=== PATIENT | male | born 1960 | race Asian ===

== ENCOUNTER 2019-03-31 02:00 | Inpatient (IN) | payer OTHER ==
[~2019-03-31] VITALS: Ht 180.3 cm; Wt 79.4 kg
[2019-03-31 02:36] LABS: BASOPHIL % 0.7 % (0-2); PLATELET COUNT 208 x10^3mcL (130-400); RED CELL DISTRIBUTION WIDTH 14.5 % (11.5-14.5)
[2019-03-31 02:51] LABS: ALBUMIN 3.9 g/dL (3.4-5.0); ALKALINE PHOSPHATASE 54 U/L (46-116); ALT/SGPT 32 U/L (16-63); AST/SGOT 24 U/L (15-37); BILIRUBIN TOTAL 0.56 mg/dL (0.20-1.00); CALCIUM 8.9 mg/dL (8.5-10.1); CARBON DIOXIDE 28.7 mmol/L (21-32); CHLORIDE SERUM 103 mmol/L (98-107); CREATININE SERUM 0.9 mg/dL (0.7-1.3); GFR1 > 60 mL/min; GLUCOSE SERUM 111 mg/dL (74-106); MAGNESIUM 2.2 mg/dL (1.8-2.4); SODIUM SERUM 143 mmol/L (136-145); TOTAL PROTEIN, SERUM 7.1 g/dL (6.4-8.2)
[2019-03-31 04:06] VITALS: BP 153/92
[2019-03-31 04:14] LABS: CHOLESTEROL/HDL RATIO 7.7
[2019-03-31 06:00] VITALS: BP 138/86
[2019-03-31 07:44] LABS: UA SPECIFIC GRAVITY 1.025 (1.005-1.035); microscopic required? YES; urine erythrocyte TRACE (NEGATIVE)
[2019-03-31 08:39] VITALS: BP 123/71
[2019-03-31 08:45] LABS: AMPHETAMINE QUAL UR NONE DETECTED (See below)
[2019-03-31 09:18] LABS: CALCIUM 8.4 mg/dL (8.5-10.1); CARBON DIOXIDE 27.2 mmol/L (21-32); CHLORIDE SERUM 108 mmol/L (98-107); CREATININE SERUM 0.7 mg/dL (0.7-1.3); GFR1 > 60 mL/min; GLUCOSE SERUM 116 mg/dL (74-106); PHOSPHOROUS 2.6 mg/dL (2.5-4.9); SODIUM SERUM 143 mmol/L (136-145)
[2019-03-31 09:25] LABS: BASOPHIL % 0.3 % (0-2); PLATELET COUNT 200 x10^3mcL (130-400); RED CELL DISTRIBUTION WIDTH 14.4 % (11.5-14.5)
[2019-03-31 12:19] VITALS: BP 111/70
[2019-03-31 16:49] VITALS: BP 106/63; BP 112/80
[2019-03-31 20:40] VITALS: BP 125/81
[2019-04-01 05:36] VITALS: BP 121/75
[2019-04-01 07:13] LABS: BASOPHIL % 0.5 % (0-2); PLATELET COUNT 184 x10^3mcL (130-400)
[2019-04-01 07:17] LABS: RED CELL DISTRIBUTION WIDTH 14.8 % (11.5-14.5)
[2019-04-01 07:28] LABS: CALCIUM 8.4 mg/dL (8.5-10.1); CARBON DIOXIDE 27.5 mmol/L (21-32); CHLORIDE SERUM 108 mmol/L (98-107); CREATININE SERUM 0.7 mg/dL (0.7-1.3); GFR1 > 60 mL/min; GLUCOSE SERUM 94 mg/dL (74-106); MAGNESIUM 2.1 mg/dL (1.8-2.4); PHOSPHOROUS 3.4 mg/dL (2.5-4.9); POTASSIUM SERUM 3.6 mmol/L (3.5-5.1); SODIUM SERUM 143 mmol/L (136-145)
[2019-04-01 08:26] VITALS: BP 112/61
[2019-04-01 12:08] VITALS: BP 117/67
[2019-04-01] MEDS ORDERED: ATORVASTATIN CA40 M1 PO (12:27)
[2019-04-01] MEDS ORDERED: KEPPRA750 MG PO (12:28)
[2019-04-01] MEDS ORDERED: ZES5 PO (12:28)
[2019-04-01 13:05] VITALS: BP 117/67
== END 2019-04-01 14:00 | disposition home or self-care (01) | DRG 93 ==
LOC: ED 02:00 → DU 03:22
PROVIDERS: Emergency Medicine; ADMIT Internal Medicine
DX: D18.02 Hemangioma of intracranial structures (principal); R56.9 Unspecified convulsions; E87.6 Hypokalemia; R07.89 Other chest pain; I34.0 Nonrheumatic mitral (valve) insufficiency; E78.5 Hyperlipidemia, unspecified; Z87.442 Personal history of urinary calculi
CPT/HCPCS: 83880; 90658; 97116-GP; A9577; G0378; J3480; J7030; Q0092; Q9967